=== PATIENT | female | born 1935 | race Caucasian/White ===

== ENCOUNTER 2023-09-11 17:47 | Observation (INO) | payer OTHER, SELFPAY ==
[2023-09-11] VITALS (7 sets, daily range): BP systolic 113–161; BP diastolic 53–85; PULSE 56–140; RESP 15–22; TEMP 36.4; O2SAT 96–100; BMI 24.3
--- NOTE | ~2023-09-11 | CT_ITS ---
EXAMINATION: CT brain wo con DATE: 09/11/2023 18:38 INDICATION: Neurologic deficit TECHNIQUE: Computed tomography (CT) of the head was performed without intravenous contrast. Sagittal and coronal reconstructions were performed. The mA was adjusted according to patient size. Iterative reconstruction technique was employed. The dose-length product was 605.33 mGy-cm. COMPARISON: None FINDINGS: There is vasogenic edema with swelling of couple gyri in the right parietal lobe. This surrounds a co uple tiny high attenuation foci which could represent tiny foci of subarachnoid hemorrhage, thrombus or atherosclerotic calcification within a vessel along the gyri. There is calcification of a 1.9 x 1. 7 x 0.8 cm dural based extra-axial mass overlying the left frontal lobe consistent with a meningioma. No abnormal extra axial fluid collection. Ventricles are normal and symmetric. Changes of bilateral intraocular lens replacement. The orbits and mastoid air cells are normal. Complete opacification of the left maxillary sinus with central increased density suggestive of chronic fungal sinusitis. IMPRESSION: 1. Moderate-sized region of vasogenic edema in the right parietal lobe which raises concern for possi ble underlying malignancy with differential including acute infarct. There are couple foci of high at tenuation along one of the affected gyri which could represent minimal subarachnoid hemorrhage or thr ombosis or calcific lesion along a vessel. Recommend further evaluation with pre and postcontrast MRI . 2. 1.9 x 1.7 x 0.8 cm calcified extra-axial mass overlying left frontal lobe most consistent with a m eningioma. 3. Complete opacification of the left maxillary sinus with central increased density suggestive of ch ronic fungal sinusitis. Reviewed, dictated and finalized at location A. IMPRESSION: 1. Moderate-sized region of vasogenic edema in the right parietal lobe which ra ises concern for possible underlying malignancy with differential including acu te infarct. There are couple foci of high attenuation along one of the affected gyri which could represent minimal subarachnoid hemorrhage or thrombosis or ca lcific lesion along a vessel. Recommend further evaluation with pre and postcon trast MRI. 2. 1.9 x 1.7 x 0.8 cm calcified extra-axial mass overlying left frontal lobe mo st consistent with a meningioma. 3. Complete opacification of the left maxillary sinus with central increased de nsity suggestive of chronic fungal sinusitis.
--- NOTE | ~2023-09-11 | MR_ITS ---
EXAMINATION: MR brain/brain stem wo/w con DATE: 09/12/2023 14:13 INDICATION: Cerebrovascular accident. Right parietal lobe edema. TECHNIQUE: Magnetic resonance imaging (MRI) of the brain and brainstem was performed without and with 13 mL MultiHance intravenous contrast. COMPARISON: Head CT 09/11/2023 FINDINGS: There are subacute infarcts involving right parietal lobe, posterior right frontal lobe, an d right temporal occipital region characterized by increased T2 signal intensity, areas of enhancemen t, and areas of restricted diffusion. There are blood products in the right parietal infarct. There a re scattered areas of nonspecific increased T2-weighted signal intensity in the cerebral white matter , which is within normal limits for the patient's age. There is a 2.2 x 1.0 cm enhancing extra-axial mass overlying posterior left frontal lobe, consistent with a meningioma. The ventricles are normal i n size. There are likely changes of ocular lens replacement surgeries. There is complete opacificatio n of left maxillary sinus. The mastoid air cells are normal. IMPRESSION: 1. Subacute infarcts involving the right parietal lobe, posterior right frontal lobe, right temporal occipital region. Blood products within the right parietal infarct. 2. 2.2 cm meningioma overlying posterior left frontal lobe. 3. Chronic sinusitis. Reviewed, dictated and finalized at location A. IMPRESSION: 1. Subacute infarcts involving the right parietal lobe, posterior right frontal lobe, right temporal occipital region. Blood products within the right parieta l infarct. 2. 2.2 cm meningioma overlying posterior left frontal lobe. 3. Chronic sinusitis.
--- NOTE | 2023-09-11 17:51 | ED.GENADULT ---
HPI - General Adult General Chief complaint: Unspecified Stated complaint: muscle twitching Time Seen by Provider: 09/11/23 17:51 History of Present Illness HPI narrative: Patient is an 88 year old female with history of HTN, HLD, CAD, Afib on eliquis, bladder cancer here with left sided twitching and pain. Patient was recent admitted to [facility] for acute onset left sided weakness on 08/27. She did not get thrombolytics due to multiple recent falls resulting in finger fractures, scalp hematomas and orbital floor fracture. She was transferred to [place] that same day and underwent mechanical thrombectomy with complication resulting in angioplasty and stenting of right common carotid. She had near complete resolution of her symptoms after intervention, was admitted to Neuro ICU at [place] initially, and was eventually discharged to [facility] facility. She has been progressing well in rehab with expectation that she will likely be able to be discharged in a week. Today around 3-3:30 PM she was about to eat and she began having twitching in her left arm. The twitching then progressed to involve her entire left side including her neck, bilateral extremities and her left abdominal wall. Her family member at bedside who is a hospitalist, witnessed this episode and noted it looked like myoclonic jerking isolated to the left side and seemed severe enough to pull her head to the left. These lasted in waves for about 3 hours and are now resolved. Patient currently feels tired, dehydrated but otherwise fine. Related Data Home Medications Medication Instructions Recorded Confirmed acetaminophen 325 mg tablet 975 mg PO Q6H PRN Pain (Scale 09/04/23 09/04/23 Score 7-10) albuterol sulfate 90 mcg/actuation 2 puff inhalation Q4H PRN SOB 09/04/23 09/04/23 aerosol inhaler apixaban 5 mg tablet (Eliquis) 5 mg PO BID 09/04/23 09/04/23 atorvastatin 80 mg tablet 80 mg PO DAILY 09/04/23 09/04/23 carvedilol 3.125 mg tablet 3.125 mg PO BID 09/04/23 09/04/23 cholecalciferol (vitamin D3) 25 25 mcg PO DAILY 09/04/23 09/04/23 mcg (1,000 unit) capsule ibuprofen 600 mg tablet 600 mg PO Q6H PRN Pain (Scale 09/04/23 09/04/23 Score 4-6) methocarbamol 750 mg tablet 750 mg PO TID PRN Spasms 09/04/23 09/04/23 ticagrelor 90 mg tablet (Brilinta) 90 mg PO BID 09/04/23 09/04/23 Allergies Allergy/AdvReac Type Severity Reaction Status Date / Time adhesive Allergy Rash Verified 09/04/23 17:42 aspirin Allergy Gastrointestinal Verified 09/04/23 17:42 Upset ciprofloxacin Allergy Rash Verified 09/04/23 17:42 indapamide Allergy Hives Verified 09/04/23 17:42 Penicillins Allergy Hives Verified 09/04/23 17:42 Sulfa (Sulfonamide Allergy Hives Verified 09/04/23 17:42 Antibiotics) Review of Systems Review of Systems: All systems reviewed & are unremarkable except as noted in HPI and below PMFSH Family History Family History Daughter Breast cancer Social History Social History Smoking status: Former smoker Tobacco type: cigarettes Second hand tobacco smoke exposure: No Alcohol intake: current Drinks per week: 4 Substance use: former Substance use type: does not use Do You Feel Safe in your Home?: Yes Lack of Transportation: No Lack of Food: Never True Current Housing: I Do Not Have Housing Concerned About Future Housing: No Difficulty Paying Gas/Electric Bills: No Difficulty Paying for Meds: No Currently Unemployed: No Education: High School Diploma/GED Difficulty w/ Childcare or Family Care: No Spiritual care concerns: No Exam Narrative: GENERAL: Well-appearing, well-nourished, and in no acute distress. HEAD: Normocephalic, atraumatic. EYES: PERRLA and EOMI. ENT: Nares clear. Mucous membranes moist. NECK: Supple. CHEST: Clear to auscultation. No respiratory distress. HEART: Regular rate and rhythm
--- NOTE | 2023-09-11 18:16 | ECG_ITS ---
SEE SCANNED COPY FOR CONFIRMED REPORT MTDD
[2023-09-11 18:41] LABS: Appearance Urine Clear (Clear); Bilirubin Urine Negative (Negative); Blood Urine Negative (Negative); Color Urine Yellow (Yellow); Glucose Urine UA Negative (Negative); Ketones Urine Negative (Negative); Leukocyte Esterase Ur Negative LEU/UL (Negative); Nitrate Urine Negative (Negative); Protein Urine Negative (Negative); Specific Grav Ur 1.013 (1.001-1.035)
[2023-09-11] MEDS: LACTATED RINGERS 500 ML 999 ML IV CONT (18:59)
[2023-09-11 19:06] LABS: Basophils Absolute Auto 0.1 K/mm3 (0.0-0.1); Basophils Percent Auto 0.7 % (0.2-1.2); Eosinophils Absolute Auto 0.2 K/mm3 (0-0.3); Hemoglobin 10.4 g/dL (12.0-15.0); Immature Granulocyte Absolute 0.05 K/mm3 (0.00-0.031); Immature Granulocyte Percent A 0.5 % (0-0.5); Lymphocytes Absolute Auto 0.72 K/mm3 (0.9-3.2); Lymphocytes Percent Auto 6.8 % (18.3-44.2); Mean Corpuscular HGB Conc 33.5 g/dl (32-36); Mean Corpuscular Hemoglobin 30.1 pg (26-34); Mean Corpuscular Volume 89.9 fl (80-100); Mean Platelet Volume 9.4 fl (7.4-10.4); Monocytes Absolute Auto 0.7 K/mm3 (0.1-0.6); Monocytes Percent Auto 6.4 % (2.6-8.5); Neutrophils Absolute Auto 8.9 K/mm3 (1.3-6.7); Neutrophils Percent Auto 83.6 % (45.5-73.1); Platelet Count Result 355 k/mm3 (150-375); Red Blood Count 3.45 M/mm3 (4.2-5.4); Red Cell Distribution Width 13.1 % (11.5-14.5); White Blood Count 10.6 K/mm3 (4.5-10.0)
[2023-09-11 19:31] LABS: Albumin Level 3.8 g/dL (3.5-5.1); Carbon Dioxide 18 mmol/L (22-30); Estimated CRCL calculation 33 ml/min; Estimated Glomerular Filt Rate 59
[2023-09-11 19:37] LABS: Troponin I < 0.012 ng/mL (0.000-0.034)
[2023-09-11 19:48] LABS: Alanine Aminotransferase 27 U/L (6-35); Alkaline Phosphatase 96 U/L (38-126); Anion Gap 10 mmol/L (4-12); Aspartate Amino Transferase 34 U/L (14-36); Bilirubin,Total 0.7 mg/dL (0.2-1.3); Blood Urea Nitrogen 18 mg/dL (7-17); Calcium 9.3 mg/dL (8.4-10.2); Chloride 110 mmol/L (98-107); Glucose 124 mg/dL (65-110); Magnesium 1.7 mg/dL (1.6-2.3); Potassium 3.5 mmol/L (3.4-5.0); Sodium 138 mmol/L (137-145)
[2023-09-11] MEDS: levETIRAcetam IV 750 MG in DEXTROSE 5% 100 ML 430 MG IVPB (20:12)
[2023-09-11 20:15] LABS: Add Urine Microscopic? NO
--- NOTE | 2023-09-11 21:56 | ADMGEN ---
This patient, Umu Velásquez, was admitted to Medical Room 244-. Patient/family oriented to hospital policies and general routines including ID bracelet, bed and alarms, visiting hours, pain management, procedures, bathroom and other care routines, personal items, smoking policy, room service/diet, and visiting hours. Information on how to activate the Rapid Response Team has been discussed. Patient/Family are encouraged to report perceived risks to care and to ask questions if they do not understand what they are told or what they should do.
[2023-09-12] VITALS (12 sets, daily range): BP systolic 131–153; BP diastolic 39–52; PULSE 60–91; RESP 18–21; TEMP 36.4–36.7; O2SAT 97; BMI 24.3
--- NOTE | 2023-09-12 07:18 | PM.IMHP ---
H&P: HPI History of Present Illness Date/Time: 09/12/23 07:18 Chief Complaint: 88 year old female with history of HTN, HLD, CAD, Afib on eliquis, bladder cancer admitted with LT sided twitching and pain. Patient was recent admitted to [facility] for acute onset left sided weakness on 08/27. She did not get thrombolytics due to multiple recent falls resulting in finger fractures, scalp hematomas and orbital floor fracture. She was transferred to [place] that same day and underwent mechanical thrombectomy with complication resulting in angioplasty and stenting of right common carotid. She had near complete resolution of her symptoms after intervention, was admitted to Neuro ICU at [place] initially, and was eventually discharged to [facility] facility. She has been progressing well in rehab with expectation that she will likely be able to be discharged in a week. 09/10 around 3-3:30 PM she was about to eat and she began having twitching in her left arm. The twitching then progressed to involve her entire left side including her neck, bilateral extremities and her left abdominal wall. Her family member at bedside who is a hospitalist, witnessed this episode and noted it looked like myoclonic jerking isolated to the left side and seemed severe enough to pull her head to the left. These lasted in waves for about 3 hours and are now resolved. Patient currently feels tired, dehydrated but otherwise fine. ?Patient here from [facility] for sudden onset left arm twitching, left side twitching, left arm and leg pain. Hx of fall with CVA 2 weeks ago. Triage vitals initially tachycardic, improving HR. Note from rehab reviewed today. Patient is currently there after recent stroke, treated with stenting and thrombectomy at [place]. No documentation of what brought her to the hospital today in their notes. Lab work and imaging reviewed. CBC unremarkable. CMP grossly normal. Troponin normal. CT shows vasogenic edema with swelling of a couple gyri in the right parietal lobe. This surrounds a couple tiny high attenuation foci which could represent tiny foci of subarachnoid hemorrhage, thrombosis or calcific lesion along a vessel. [facility] fellow recommend MRI- it is scheduled for today, 09/11. Believe symptoms and imaging findings most likely related to her recent stroke. Recommends keppra 750 BID and obtaining MRI. From their stand point they do not find indication for transfer to their facility and believe it could be managed here. Spoke with our hospitalist team, accepts patient for admission for MRI and neurology evaluation if needed. Family updated on all results and are agreeable to plan of care.? Spoke with Dr. Goldstein who agrees with vicky, AYLA and she will be seen on consult tomorrow. 09/11- seen and examined at the bedside. Pt is alert and pleasant, voices no complains. awaiting for MRI- pt has ativan x 1 ordered for MRI test. Review of Systems Constitutional: Constitutional: Reports as per HPI Cardiovascular: Cardiovascular: Denies chest pain, Denies diaphoresis and Denies leg edema Respiratory: Respiratory: Denies chest congestion, Denies cough and Denies dyspnea Gastrointestinal: Gastrointestinal: Denies abdominal pain Genitourinary: Genitourinary: Denies hematuria Musculoskeletal: Musculoskeletal: Denies back pain Neurologic: Denies headache(s) and Denies numbness Comments: reports no twitching and no pain or weakness Psychiatric: Psychiatric: Denies anxiety and Denies behavioral changes [facility] Past Medical History Medical History (Updated 09/12/23 @ 07:35 by May Starr APRN) Coronary artery disease Family History Family History Daughter Breast cancer Social History Social History Smoking status: Never smoker Tobacco type: cigarettes Second hand tobacco smoke exposure: No Alcohol intake: former Drinks per week:
[2023-09-12] MEDS: carvediloL 3.125 MG TABLET PO ×2 (09:10→16:43)
[2023-09-12] MEDS: levETIRAcetam Tablet 250 MG, levETIRAcetam Tablet 500 MG 750 MG PO ×2 (09:10→20:02)
[2023-09-12] MEDS: TICAGRELOR 90 MG TABLET PO (09:10)
[2023-09-12] MEDS: ACETAMINOPHEN 325 MG TABLET 975 MG PO ×2 (09:12→20:02)
[2023-09-12] MEDS: ATORVASTATIN 40 MG TABLET 80 MG PO (09:12)
[2023-09-12] MEDS: APIXABAN 5 MG TABLET PO ×2 (09:13→20:02)
[2023-09-12] MEDS: CHOLECALCIFEROL 1,000 UNITS TABLET 1000 UNITS PO (09:14)
[2023-09-12] MEDS: LORazepam INJ (*CRX) 2 MG/ML VIAL 0.5 MG IV PUSH (13:03)
--- NOTE | 2023-09-12 15:53 | WPDNEURCNPN ---
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 A treated with Keppra seems adequate at this time. I can not hold off over the medication but been Eliquis and Brilinta in view of the small hemorrhage which may have led to this onset of seizures. I spoke to the nurse practitioner and decided to keep her on Eliquis in view of the atrial fibrillation. (2) CVA (cerebral vascular accident): Code(s): I63.9 - Cerebral infarction, unspecified Status: Acute Assessment and Plan: Patient has had atherectomy at [facility] with good recovery of strength in the left upper and lower limb on 08/27 and 2023. (3) Hypertension: Code(s): I10 - Essential (primary) hypertension Status: Acute (4) Atrial fibrillation: Code(s): I48.91 - Unspecified atrial fibrillation Status: Acute Plan Patient should continue the Keppra 750 mg twice a day and Eliquis for now. MRI of the brain films were reviewed which show evidence of area of hemorrhage in the right side. It is not large enough to require into intervention is most likely residual finding from the recent stroke and the a 3rd number seizure Excedrin. However should continue to observe for 1 or 2 days for send her back to nursing facility. Consult date: 09/12/23 HPI: Umu Velásquez is a 88 year old female with history off her left side weakness who was admitted to [facility] around 08/28/2023 and was subsequently transferred to [facility]. She a could not get to tPA since he did not qualify but had atherectomy and few other things done with that the weakness in the left side significantly improved. She was subsequently transferred to rehab at [facility] facility and HC was brought to the emergency room yesterday with twitching of the left arm. Apparently the twitching went on for quite some time. There was no impairment of consciousness. She did not have any other symptoms with it. She thinks that the whole arm was jerking. She was given Keppra and after that he had no more problems. She has a resting well and does not have any other additional new problems. She feels tired and somewhat frustrated. She also has history of atrial fibrillation and has been on Eliquis. It was noted that she is on Brilinta also which probably started due to the to vascular procedures. MRI of the brain performed today shows some hemorrhagic lesion in the right hemisphere. This had appear to be a residual finding from what happened 08/29/23. Patient denies any headache or diplopia or difficulty with speech or swallowing or any weakness in upper lower limbs at this time. Review of Systems Review of Systems: All systems reviewed & are unremarkable except as noted in HPI and below Constitutional: Constitutional: Denies chills, Denies fever(s) and Denies weight loss Eyes: Eyes: Denies diplopia and Denies loss of vision ENT: Denies dizziness, Denies hearing loss and Denies tinnitus Cardiovascular: Cardiovascular: Denies chest pain, Denies syncope and Denies dyspnea Respiratory: Respiratory: Denies cough, Denies dyspnea and Denies wheezing Gastrointestinal: Gastrointestinal: Denies abdominal pain, Denies change in bowel habits and Denies vomiting Genitourinary: Genitourinary: Denies urinary incontinence Musculoskeletal: Musculoskeletal: Denies arthralgias and Denies joint swelling Integumentary/Breasts: Skin/Breast: Denies new lesions and Denies rash Neurologic: Reports as per HPI, Denies dizziness, Denies syncope a
[2023-09-12] MEDS: DOCUSATE SODIUM 100 MG CAPSULE PO (20:02)
[2023-09-13] VITALS (12 sets, daily range): BP systolic 108–149; BP diastolic 50–59; PULSE 61–85; RESP 16–20; TEMP 36.2–37.4; O2SAT 83–99
--- NOTE | 2023-09-13 07:29 | P.PNIM_ITS ---
Progress Note: A&P Assessment and Plan (1) CVA (cerebral vascular accident): Code(s): I63.9 - Cerebral infarction, unspecified Status: Acute Assessment and Plan: # h/o CVA # vasogenic edema RT parental lobe - recent stenting and thrombectomy at [place] - asa listed as allergies-some mild GI discomfort - will try 81 [id number] agreable - on statin-continue -MRI completed 09/12/23 - neurology following: Patient should continue the Keppra 750 mg twice a day and Eliquis for now.? MRI of the brain films were reviewed which show evidence of area of hemorrhage in the right side.? It is not large enough to require into intervention is most likely residual finding from the recent stroke and the a 3rd number seizure Excedrin.? However should continue to observe for 1 or 2 days for send her back to nursing facility - neuro checks- stat CT brain if any neuro changes - seizure precautions - if stable tomorrow- will transfer back to rehab on 09/13 (2) Hyperlipidemia: Code(s): E78.5 - Hyperlipidemia, unspecified Status: Acute Assessment and Plan: - continue statin (3) Hypertension: Code(s): I10 - Essential (primary) hypertension Status: Acute Assessment and Plan: # HTN - coreg 3.125 mg bid -aim for normotension - monitor vital signs (4) Atrial fibrillation: Code(s): I48.91 - Unspecified atrial fibrillation Status: Acute Assessment and Plan: # Afib - eliquis, coreg - fall/bleeding precaution - tele monitoring (5) Elevated liver enzymes: Code(s): R74.8 - Abnormal levels of other serum enzymes Status: Acute Assessment and Plan: # elevated liver enzyme - monitor CMP (6) Carotid artery occlusion: Code(s): I65.29 - Occlusion and stenosis of unspecified carotid artery Status: Acute Assessment and Plan: # carotid artery occlusion - S/p mechanical thrombectomy and stent placement x2 TICI3 reperfusion ECG showed atrial fibrillation TTE on showed LVEF of 65-70%.? Normal diastolic function.? Trace TR.? Negative bubble study Initial CTA head and neck W/ WO showed complete occlusion of the right common carotid artery internal carotid artery Moderate stenosis of distal left common carotid artery Moderate stenosis of the V4 segment of the dominant right vertebral artery Moderate stenosis of the takeoff of the left subclavian artery and mild stenosis of the takeoff of the right 4 vessel angiography showed right common carotid artery occlusion at the bifurcation with occlusion of the right internal carotid artery and right external carotid artery Successful 2 pass aspiration mechanical thrombectomy followed by angioplasty, stenting, and instead angioplasty of the right internal carotid artery Final angiography demonstrated ET 1 C1-3 reperfusion No loop recorder at discharge (known afib) (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 A treated with Keppra seems adequate at this time.? I can not hold off over the medication but been Eliquis and Brilinta in view of the small hemorrhage which may have led to this onset of seiz
[2023-09-13] MEDS: carvediloL 3.125 MG TABLET PO ×2 (10:19→18:24)
[2023-09-13] MEDS: CHOLECALCIFEROL 1,000 UNITS TABLET 1000 UNITS PO (10:19)
[2023-09-13] MEDS: APIXABAN 5 MG TABLET PO ×2 (10:19→20:43)
[2023-09-13] MEDS: ATORVASTATIN 40 MG TABLET 80 MG PO (10:19)
[2023-09-13] MEDS: levETIRAcetam Tablet 250 MG, levETIRAcetam Tablet 500 MG 750 MG PO ×2 (10:20→20:43)
--- NOTE | 2023-09-13 11:59 | WPDNEUROPN ---
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 Velásquez is an 88 year old female with a recent R hemispheric stroke due to R internal carotid occlusion s/p thrombectomy. Course was complicated by possible focal seizure. No recurrence of seizures during this admission. MRI brain showed some blood products in the R parietal stroke but no mention of active bleeding. She denies any headaches and there has been no change in mentation. - Continue Keppra 750mg BID - Stat CT head for any change in mental status or neuro exam - She is already on Lipitor 80mg daily and Eliquis - Blood pressure goal -- aim for normotension - Discussed with patient that given the seizure, she cannot drive until she is seizure free for at least six months Subjective Date/time seen: 09/13/23 11:59 Interval history: Ms. Velásquez is an 88 year old female with a history of atrial fibrillation who presented for L sided weakness at [facility] around 08/28/23, was transferred to [facility]. She did not get tPA but did undergo thrombectomy of the R common carotid artery. She had negative bubble study. She is on Eliquis for the atrial fibrillation. She was discharged the rehab. During rehab, she had an episode of LUE twitching that was concerning for seizure. She was taken to [facility]. She was given Keppra. MRI brain shows subacute infarcts in the R parietall lobe, posterior R frontal lobe, R temporal occipital region. And blood products within the R parietal infarct. Patient reports feeling well today. She denies any headaches, confusion, recurrence of seizure-like activity. Review of Systems Review of Systems: All systems reviewed & are unremarkable except as noted in HPI and below Exam Const: General: no acute distress Orientation/consciousness: oriented to person, oriented to place and oriented to time HENMT: Head: normocephalic and atraumatic Face/Nose/Sinus: Normal external nose present Eyes: General: appearance normal, both eyes and all related structures Eyelids: eyelids normal Conjunctivae: conjunctivae normal Pupils: Equal, round and reactive pupils present EOM: EOMs intact bilaterally and No Nystagmus present Resp: Effort & Inspection: normal respiratory effort Skin: General skin exam: normal color and no rashes or lesions noted Neuro: General: oriented to person, oriented to place and oriented to time Cranial nerves: Yes CN's II-XII intact bilaterally, Yes Equal, round and reactive pupils present, Yes Bilaterally intact EOM present, Yes Nystagmus not present, Yes Normal facial strength present, Yes facial symmetry, Yes Midline tongue present, Yes Symmetric palate elevation present, Yes Normal hearing present, Yes Ability to bilaterally elevate shoulders present and No Nystagmus present Speech: normal speech Motor exam (neuro): Normal motor muscle tone present throughout and Motor abnormalities not present Sensory Exam: normal sensation Coordination: [id number] test normal Other: Strength is reduced in the LUE -- she has antigravity movement only, but she also has a cast due to fracture in that arm which could be contributing. Otherwise strength in all other extremities is age appropriate Extrem: Other: cast on LUE Psych: Appearance: grossly normal Mental Status: mental status grossly normal Affect: normal affect Attitude: cooperative Objective Data Vital Signs Vital Signs: Vital Signs - 24 hr 09/12/23 12:01 09/12/23 14:00 09/12/23 16:43 Temperature 36.7 C Pulse Rat
[2023-09-13] MEDS: ASPIRIN 81 MG CHEWABLE TABLET PO (15:10)
[2023-09-13] MEDS: DOCUSATE SODIUM 100 MG CAPSULE PO (20:43)
[2023-09-13] MEDS: LORazepam INJ (*CRX) 2 MG/ML VIAL 0.5 MG IV PUSH (21:31)
--- NOTE | 2023-09-13 21:56 | PC.NURSE ---
[id number] patient called staff to room stating I'm getting ready to have a seizure in my stomach . states she can feel a seizure coming on and it starts in her stomach. patient remains alert and talking, no seizure activity noted. patient requesting medication to stop the impending seizure and for her nerves .
[2023-09-14] VITALS: PULSE 69
[2023-09-14 04:00] VITALS: PULSE 75
[2023-09-14 05:00] VITALS: BP 142/55; PULSE 79; RESP 22; TEMP 36.7; O2SAT 97
--- NOTE | 2023-09-14 07:20 | PM.IMPN ---
Progress Note: A&P Assessment and Plan (1) CVA (cerebral vascular accident): Code(s): I63.9 - Cerebral infarction, unspecified Status: Acute Assessment and Plan: # h/o CVA -recent # vasogenic edema RT parental lobe - recent stenting and thrombectomy at [place] - asa listed as allergies-some mild GI discomfort - will try 81 [id number] agreeable - on statin-continue -MRI completed 09/12/23 - neurology following: Patient should continue the Keppra 750 mg twice a day and Eliquis for now.? MRI of the brain films were reviewed which show evidence of area of hemorrhage in the right side.? It is not large enough to require into intervention is most likely residual finding from the recent stroke and the a 3rd number seizure Excedrin.? However should continue to observe for 1 or 2 days for send her back to nursing facility - neuro checks- stat CT brain if any neuro changes - seizure precautions - if stable tomorrow- will transfer back to rehab on 09/13 (2) Hyperlipidemia: Code(s): E78.5 - Hyperlipidemia, unspecified Status: Acute Assessment and Plan: - continue statin (3) Hypertension: Code(s): I10 - Essential (primary) hypertension Status: Acute Assessment and Plan: # HTN - coreg 3.125 mg bid -aim for normotension - monitor vital signs (4) Atrial fibrillation: Code(s): I48.91 - Unspecified atrial fibrillation Status: Acute Assessment and Plan: # Afib - eliquis, coreg - fall/bleeding precaution - tele monitoring (5) Elevated liver enzymes: Code(s): R74.8 - Abnormal levels of other serum enzymes Status: Acute Assessment and Plan: # elevated liver enzyme - monitor CMP (6) Carotid artery occlusion: Code(s): I65.29 - Occlusion and stenosis of unspecified carotid artery Status: Acute Assessment and Plan: # carotid artery occlusion - S/p mechanical thrombectomy and stent placement x2 TICI3 reperfusion ECG showed atrial fibrillation TTE on showed LVEF of 65-70%.? Normal diastolic function.? Trace TR.? Negative bubble study Initial CTA head and neck W/ WO showed complete occlusion of the right common carotid artery internal carotid artery Moderate stenosis of distal left common carotid artery Moderate stenosis of the V4 segment of the dominant right vertebral artery Moderate stenosis of the takeoff of the left subclavian artery and mild stenosis of the takeoff of the right 4 vessel angiography showed right common carotid artery occlusion at the bifurcation with occlusion of the right internal carotid artery and right external carotid artery Successful 2 pass aspiration mechanical thrombectomy followed by angioplasty, stenting, and instead angioplasty of the right internal carotid artery Final angiography demonstrated ET 1 C1-3 reperfusion No loop recorder at discharge (known afib) (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 A treated with Keppra seems adequate at this time.? I can not hold off over the medication but been Eliquis and Brilinta in view of the small hemorrhage which may have led to this onset of seizures.? I spoke to the nurse practitioner and decided to keep her on Eliquis in view of the atrial fibrillation . - continue [id number] mg bid - seizure precautions Plan Diet:? heart healthy GI Prophylaxis:? not indicated DVT Prophylaxis:? eliquis Lines:? peripheral Code Status:? full code Time Spent With Patient Time with patient: 15 - 25 minutes
[2023-09-14 08:00] VITALS: PULSE 63
[2023-09-14] MEDS: levETIRAcetam Tablet 250 MG, levETIRAcetam Tablet 500 MG 750 MG PO (10:06)
[2023-09-14 10:07] VITALS: PULSE 79
[2023-09-14] MEDS: carvediloL 3.125 MG TABLET PO (10:07)
[2023-09-14] MEDS: APIXABAN 5 MG TABLET PO (10:07)
[2023-09-14] MEDS: CHOLECALCIFEROL 1,000 UNITS TABLET 1000 UNITS PO (10:07)
[2023-09-14] MEDS: ATORVASTATIN 40 MG TABLET 80 MG PO (10:07)
[2023-09-14] MEDS: ASPIRIN 81 MG CHEWABLE TABLET PO (10:08)
[2023-09-14 12:00] VITALS: PULSE 82
--- NOTE | 2023-09-14 13:37 | PM.DS ---
DS: Admitting Diagnosis Discharge Date 09/14/23 Admitting Diagnosis CVA vasogenic edema RT parental lobe recent stenting and thrombectomy at [place] focal motor seizure A fib DS: Discharge Diagnosis Discharge Diagnosis (1) CVA (cerebral vascular accident): Code(s): I63.9 - Cerebral infarction, unspecified Status: Acute Assessment and Plan: # h/o CVA -recent # vasogenic edema RT parental lobe - recent stenting and thrombectomy at [place] - asa listed as allergies-some mild GI discomfort - will try 81 [id number] agreeable - on statin-continue - on asa since Brilinta was held- will need f/u with neurology to see when it is ok to restart -MRI completed 09/12/23 - neurology following: Patient should continue the Keppra 750 mg twice a day and Eliquis for now.? MRI of the brain films were reviewed which show evidence of area of hemorrhage in the right side.? It is not large enough to require into intervention is most likely residual finding from the recent stroke - neuro checks- stat CT brain if any neuro changes - seizure precautions - cleared per DR Goldstein to go back to [facility] (2) Hyperlipidemia: Code(s): E78.5 - Hyperlipidemia, unspecified Status: Acute Assessment and Plan: - continue statin (3) Hypertension: Code(s): I10 - Essential (primary) hypertension Status: Acute Assessment and Plan: # HTN - coreg 3.125 mg bid -aim for normotension - monitor vital signs (4) Atrial fibrillation: Code(s): I48.91 - Unspecified atrial fibrillation Status: Acute Assessment and Plan: # Afib - eliquis, coreg - fall/bleeding precaution - tele monitoring (5) Elevated liver enzymes: Code(s): R74.8 - Abnormal levels of other serum enzymes Status: Acute Assessment and Plan: # elevated liver enzyme - monitor CMP (6) Carotid artery occlusion: Code(s): I65.29 - Occlusion and stenosis of unspecified carotid artery Status: Acute Assessment and Plan: # carotid artery occlusion - S/p mechanical thrombectomy and stent placement x2 TICI3 reperfusion ECG showed atrial fibrillation TTE showed LVEF of 65-70%.? Normal diastolic function.? Trace TR.? 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 heart healthy GI Prophylaxis:? not indicated DVT Prophylaxis:? eliquis Lines:? peripheral Code Status:? full code DS: Summary Hospital Course Hospital Course: 88 year old female with a history of atrial fibrillation who presented for L sided weakness at [facility] around 08/28/23, was transferred to [facility]. She did not get tPA but did undergo thrombectomy of the R common carotid artery. She had negative bubble study. She is on Eliquis for the atrial fibrillation. She was discharged the rehab. During rehab, she had an episode of LUE twitching that was concerning for seizure. She was taken to [facility]. She was given Keppra. MRI brain shows subacute infarcts in the R parietall lobe, posterior R frontal lobe, R temporal occipital region. And blood products within the R parietal infarct. Brilinta was held but el
== END 2023-09-14 16:05 ==
LOC: ANHED 20:53 → ANH2MED 22:53
PROVIDERS: Admitting Provider Internal Medicine; Emergency Provider Student in an Organized Health Care Education/Training Program; PCP Internal Medicine; Visit Provider Internal Medicine
DX: I63.9 Cerebral infarction, unspecified (principal); G40.109 Localization-related (focal) (partial) symptomatic epilepsy and epileptic syndromes with simple partial seizures, not intractable, without status epilepticus; I65.29 Occlusion and stenosis of unspecified carotid artery; R74.8 Abnormal levels of other serum enzymes; I10 Essential (primary) hypertension; E78.5 Hyperlipidemia, unspecified; I25.10 Atherosclerotic heart disease of native coronary artery without angina pectoris; I48.91 Unspecified atrial fibrillation; Z95.5 Presence of coronary angioplasty implant and graft; Z79.01 Long term (current) use of anticoagulants; Z79.51 Long term (current) use of inhaled steroids; Z87.891 Personal history of nicotine dependence; Z85.51 Personal history of malignant neoplasm of bladder
CPT/HCPCS: 36415; 70450; 70553; 80053; 81003; 83735; 84484; 85025; 93005; 96361; 96365; 97161; 99285; A9270; A9577; G0378; J1953; J2060; J7120